=== PATIENT | male | born 1990 | race African-American/Black ===

== ENCOUNTER 2017-04-23 03:52 | Emergency (ER) | payer OTHER ==
[~2017-04-23] VITALS: Ht 172.7 cm; Wt 70.9 kg
--- NOTE | 2017-04-23 05:30 | REPUSA ---
CLINICAL HISTORY: Neck pain. TECHNIQUE: Multiple axial images were obtained through the cervical spine. Images were also reconstru cted in coronal and sagittal planes. The study was performed without IV contrast. COMMENTS: There is no fracture or spondylolisthesis visualized. The paraspinal soft tissues are unremarkable. T here are no lytic or blastic lesions. Straightening of cervical lordosis is seen, suggesting muscular spasm. There is evidence of minimal m ultilevel disk disease, demonstrated by minimal osteophytosis and endplate sclerosis. No significant disk herniation is noted at any level. Canal and foramina remain patent. IMPRESSION: 1. No fracture or spondylolisthesis. 2. Straightening of cervical lordosis is seen, suggesting muscular spasm. 3. Minimal multilevel spondylosis. Thank you for your kind referral of this patient.
[2017-04-23 07:28] VITALS: BP 114/60
--- NOTE | 2017-04-27 08:56 | REP ---
Right shoulder three views : There is no fracture or dislocation. Mineralization and joint spaces are normal. There are no calcifications or foreign bodies. Impression: Negative right shoulder. Signed by Ben Del Castillo MD 04/23/2017 08:19 A
== END 2017-04-23 07:34 | disposition home or self-care (01) ==
LOC: M ED 03:52
DX: F10.10 Alcohol abuse, uncomplicated (principal); M25.511 Pain in right shoulder; Z72.0 Tobacco use
CPT/HCPCS: 70450; 72125; 73030; 99284; G0480